=== PATIENT | female | born 1950 | race Two or more races ===

== ENCOUNTER → 2016-08-09 | Outpatient (CLI) | payer OTHER, MEDICARE, MEDICAID ==
[~2016-08-09] MED LIST: AMLODIPINE PO; CALCIUM WITH VIT D PO; FENOFIBRATE PO; FURO20TA PO; GABAPOW41 PO; GLIM4TAB PO; IRBESARTAN PO; LANTUS INSULIN SC; PERCOCET PO; PIOGLITAZONE PO; PROPRANOLOL PO; SIMVPOW2 PO; TRIMTERENE
--- NOTE | 2016-08-09 12:13 | REP ---
Clinical: Increasing pain. Technique: AP, lateral, bilateral oblique views of the right and left hand. Findings: Mild joint space narrowing at the bilateral interphalangeal joints noted primarily involving the distal interphalangeal joints suggests early arthritic changes. Remainder examination normal for age. Impression: Mild joint space narrowing to the distal interphalangeal joints bilaterally.
== END ==
LOC: M CLY 11:28
PROVIDERS: ATTEND Family Medicine
DX: M25.541 Pain in joints of right hand (principal)